=== PATIENT | female | born 1960 | race Caucasian/White ===

== ENCOUNTER 2016-12-15 00:53 | Emergency (ER) | payer MEDICARE, OTHER ==
[~2016-12-15] VITALS: Ht 162.6 cm; Wt 66.0 kg
[~2016-12-15 00:53] MED LIST: ASPI81TA82 PO; CLOP75 PO; EZET10 PO; GEMF600T PO; HYDR-3533 PO; ISOS30 PO; LISI-360 PO; METO50 PO; OMEP20CA5 PO; PRAV40TA2 PO
[2016-12-15 01:02] VITALS: BP 166/110; PULSE 94; RESP 16; TEMP 98.1; O2SAT 99
[2016-12-15] MEDS ORDERED: LISI10TA3 PO (01:23)
[2016-12-15] MEDS ORDERED: OMEP20TA PO (01:23)
[2016-12-15] MEDS ORDERED: GEMF600T PO (01:23)
[2016-12-15] MEDS ORDERED: PLAV75TA29 PO (01:23)
--- NOTE | 2016-12-15 01:42 | PD ---
HPI Chief Complaint: Fall Time Seen by Provider: 01:27 Travel History International Travel<30 days: No Contact w/Intl Traveler<30days: No Traveled to known affect area: No History of Present Illness HPI The patient is a 56-year-old female that states she was drinking alcohol on Tuesday, 3 days ago. She fell and was not particularly sore on Tuesday but to stay she had generalized aches and pains around the thoracic area which went all the way to her anterior abdominal muscles. She denies any numbness, weakness or radiation of pain. She does have a history of cocaine abuse in 2011. She did not hit her head. She denies any fever, nausea or vomiting. She denies any dysuria, frequency or urgency. She took Motrin yesterday morning and this helped during her 8 hour work day. She took another Motrin at 7 PM and another one about one hour ago. These are 800 mg Motrins. PFSH Past Medical History Arthritis: No Asthma: No Heart Rhythm Problems: No Cancer: Yes (CERVICAL) Cardiac Catheterization: Yes Cardiovascular Problems: Yes (2 STENT , CABG 2 VESSELS) High Cholesterol: Yes Chemotherapy: No Chest Pain: Yes Congestive Heart Failure: No COPD: No Coronary Artery Disease: Yes Diabetes: No Diminished Hearing: No Endocrine: No Gastrointestinal Disorders: Yes GERD: Yes Genitourinary: Yes Hiatal Hernia: No Hypertension: Yes Immune Disorder: No Kidney Stones: No Musculoskeletal: Yes Neurologic: No Psychiatric: No Reproductive: No Respiratory: No Immunizations Current: No Radiation Therapy: No Renal Failure: No Sleep Apnea: No Ulcer: Yes Tetanus Vaccination: > 5 Years Influenza Vaccination: No Menopausal: Yes : 4 Para: 2 : 1 Ectopic : Yes (x1) Tubal Ligation: Yes Past Surgical History Abdominal Surgery: Yes (APPY, CHAPARRO) Appendectomy: Yes Cardiac Surgery: Yes (2 VESSEL CABG, ) Cholecystectomy: Yes Coronary Artery Bypass Graft: Yes (double) Coronary Stent: Yes (X1 2010) Ear Surgery: No Endocrine Surgery: No Eye Surgery: No Genitourinary Surgery: No Gynecologic Surgery: Yes Oral Surgery: No Thoracic Surgery: No Tonsillectomy: Yes Other Surgery: Yes Social History Alcohol Use: Yes (weekly) Tobacco Use: Yes (1 PACK PER DAY) Substance Use: Yes Allergies-Medications (Allergen,Severity, Reaction): Coded Allergies: No Known Allergies (Verified , 12/15/16) Reported Meds & Prescriptions Reported Meds & Active Scripts Active Ibuprofen 600 Mg Tab 600 Mg PO TID K-Tab (Potassium Chloride) 20 Meq Tab 20 Meq PO DAILY Flexeril (Cyclobenzaprine HCl) 10 Mg Tab 10 Mg PO TID Reported Omeprazole 20 Mg Tab 20 Mg PO DAILY Lisinopril 10 Mg Tab 10 Mg PO DAILY Gemfibrozil 600 Mg Tab 600 Mg PO BIDAC Take 30 minutes prior to breakfast and dinner. Plavix (Clopidogrel Bisulfate) 75 Mg Tab 75 Mg PO DAILY Review of Systems Except as stated in HPI: all other systems reviewed are Neg Physical Exam Narrative GENERAL: The patient is alert, oriented 3 in moderate apparent distress with her muscle aches. Her vital signs show blood pressure 166/110 but otherwise unremarkable. SKIN: Warm and dry. No needle tracks are present and there is no skin rash present. HEAD: Atraumatic. Normocephalic. EYES: Pupils equal and round. No scleral icterus. No injection or drainage. ENT: No nasal bleeding or discharge. Mucous membranes pink and moist. NECK: Trachea midline. No JVD. CARDIOVASCULAR: Regular rate and rhythm. No murmur appreciated. RESPIRATORY: No accessory muscle use. Clear to auscultation. Breath sounds equal bilaterally. GASTROINTESTINAL: Abdomen soft, the patient has tenderness over the bilateral abdominal rectus muscles in the muscles around the trapezius, latissimus dorsi and paraspinous muscles of the thoracic spine, nondistended. Hepatic and splenic margins not palpable. No guarding or rebound is present. MUSCULOSKELETAL: No obvious deformities. No clubbing. No cyanosis. No edema. NEUROLOGICAL: Awake and alert. No obvious cranial nerve deficits. Motor grossly within normal limits. Normal speech. PSYCHIATRIC: Appropriate mood and affect; insight and judgment normal. Data Data Last Documented VS Vital Signs Date Time Temp Pulse Resp B/P Pulse Ox O2 Delivery O2 Flow Rate FiO2 12/15/16 02:26 72 18 159/92 97 Room Air 12/15/16 01:02 98.1 Orders Complete Blood Count With Diff (12/15/16 01:59) Comprehensive Metabolic Panel (12/15/16 01:59) Creatine Kinase (Cpk) (12/15/16 01:59) Orphenadrine Inj (Norflex Inj) (12/15/16 02:00) Potassium Chloride (Kcl) (12/15/16 02:45) Labs Laboratory Tests Test 12/15/16 02:10 White Blood Count 6.4 TH/MM3 Red Blood Count 3.94 MIL/MM3 Hemoglobin 12.1 GM/DL Hematocrit 35.4 % Mean Corpuscular Volume 89.7 FL Mean Corpuscular Hemoglobin 30.6 PG Mean Corpuscular Hemoglobin 34.2 % Concent Red Cell Distribution Width 12.4 % Platelet Count 236 TH/MM3 Mean Platelet Volume 7.6 FL Neutrophils (%) (Auto) 60.0 % Lymphocytes (%) (Auto) 23.3 % Monocytes (%) (Auto) 13.3 % Eosinophils (%) (Auto) 2.7 % Basophils (%) (Auto) 0.7 % Neutrophils # (Auto) 3.8 TH/MM3 Lymphocytes # (Auto) 1.5 TH/MM3 Monocytes # (Auto) 0.9 TH/MM3 Eosinophils # (Auto) 0.2 TH/MM3 Basophils # (Auto) 0.0 TH/MM3 CBC Comment DIFF FINAL Differential Comment Sodium Level 143 MEQ/L Potassium Level 3.3 MEQ/L Chloride Level 110 MEQ/L Carbon Dioxide Level 24.3 MEQ/L Anion Gap 9 MEQ/L Blood Urea Nitrogen 15 MG/DL Creatinine 0.74 MG/DL Estimat Glomerular Filtration 81 ML/MIN Rate Random Glucose 107 MG/DL Calcium Level 8.6 MG/DL Total Bilirubin 0.3 MG/DL Aspartate Amino Transf 15 U/L (AST/SGOT) Alanine Aminotransferase 16 U/L (ALT/SGPT) Total Creatine Kinase 104 U/L Total Protein 7.7 GM/DL Albumin 3.3 GM/DL [facility] Medical Decision Making Medical Screen Exam Complete: Yes Emergency Medical Condition: Yes Medical Record Reviewed: Yes Differential Diagnosis Thoracic myalgias, electrolyte disorder, acute thoracic strain, muscle spasm Narrative Course The patient appears to have generalized thoracic myalgias. They go anteriorly over the abdominal rectus as well. It is now 0306 and the patient feels much better and is relaxed. The patient works at a job that requires her to be on her feet all day and this is extremely painful for her at this time. Impression: Thoracic myalgias Plan: The patient will use a heating pad, Flexeril, Motrin at 600 mg 3 times daily and potassium supplement. She should follow-up with her primary care physician next week. She is given a work excuse so that she can rest through the weekend. Diagnosis Primary Impression: Myalgia Additional Impression: Acute bilateral thoracic back pain Additional Instructions: The work excuse is designed so that she can rest. This is probably the most important part of the treatment. Do not drink alcohol or drive on the Flexeril as that will make you sleepy. Take the Motrin one tablet 3 times daily to develop high anti-inflammatory levels. The potassium pill is taken one tablet daily for 10 days. Follow-up with her primary care physician this week or next week. Med/Other Pt SpecificInfo: Prescription(s) given Scripts Ibuprofen 600 Mg Toq105 Mg PO TID #45 TAB Ref 0 Prov:Davin Masters MD 12/15/16 Potassium Chloride ER (K-Tab)20 Meq Tab20 Meq PO DAILY #10 TAB Ref 0 Prov:Davin Masters MD 12/15/16 Cyclobenzaprine (Flexeril)10 Mg Tab10 Mg PO TID #60 TAB Ref 0 Prov:Davin Masters MD 12/15/16 Disposition: DISCHARGE HOME Condition: Stable Davin Masters MD Dec 15, 2016 01:42
[2016-12-15] MEDS ORDERED: ORPHENADRINE INJ 60 MG/2 ML AMP IM ONE (02:00)
[2016-12-15 02:18] LABS: AUTOMATED NEUTROPHIL # 3.8 TH/MM3 (1.8-7.7); BASOPHIL % 0.7 % (0.0-2.0); EOSINOPHIL # 0.2 TH/MM3 (0-0.4); EOSINOPHIL % 2.7 % (0.0-4.0); HEMATOCRIT 35.4 % (35.0-46.0); HEMO FLAGS DIFF FINAL; LYMPH % 23.3 % (9.0-44.0); LYMPHOCYTE # 1.5 TH/MM3 (1.0-4.8); MEAN CELL VOLUME 89.7 FL (80.0-100.0); MEAN CORPUSCULAR HEMOGLOBIN 30.6 PG (27.0-34.0); MEAN CORPUSCULAR HGB CONC 34.2 % (32.0-36.0); MONO % 13.3 % (0.0-8.0); PLATELET COUNT 236 TH/MM3 (150-450); RED BLOOD COUNT 3.94 MIL/MM3 (4.00-5.30); RED CELL DISTRIBUTION WIDTH 12.4 % (11.6-17.2); WHITE BLOOD COUNT 6.4 TH/MM3 (4.0-11.0)
[2016-12-15 02:26] VITALS: BP 159/92; PULSE 72; RESP 18; O2SAT 97
[2016-12-15 02:28] LABS: CHLORIDE 110 MEQ/L (98-107); POTASSIUM 3.3 MEQ/L (3.5-5.1); SODIUM (NA) 143 MEQ/L (136-145)
[2016-12-15 02:31] LABS: ANION GAP 9 MEQ/L (5-15); BICARBONATE 24.3 MEQ/L (21.0-32.0)
[2016-12-15 02:32] LABS: BLOOD UREA NITROGEN 15 MG/DL (7-18)
[2016-12-15 02:34] LABS: ALT (GPT) 16 U/L (10-53)
[2016-12-15 02:35] LABS: AST (GOT) 15 U/L (15-37); GLOMERULAR FILTRATION RATE 81 ML/MIN (>89)
[2016-12-15 02:36] LABS: TOTAL BILIRUBIN ADULT 0.3 MG/DL (0.2-1.0)
[2016-12-15 02:37] LABS: ALKALINE PHOSPHATASE 111 U/L (45-117); CREATINE KINASE 104 U/L (26-192)
[2016-12-15] MEDS ORDERED: POTASSIUM CHLORIDE 20 MEQ CONTROLLED RELEASE TAB PO ONE (02:45)
[2016-12-15] MEDS ORDERED: POTA1TAB4 PO (02:56)
[2016-12-15] MEDS ORDERED: CYCL1TAB29 PO (02:56)
[2016-12-15] MEDS ORDERED: IBUP-232 PO (02:56)
[2016-12-15 02:59] VITALS: BP 152/90
== END 2016-12-15 03:28 | disposition home or self-care (01) ==
LOC: PHED 00:53
DX: M79.1 Myalgia (principal); M54.6 Pain in thoracic spine; R10.812 Left upper quadrant abdominal tenderness; R10.813 Right lower quadrant abdominal tenderness; E78.00 Pure hypercholesterolemia, unspecified; Z95.1 Presence of aortocoronary bypass graft; I10 Essential (primary) hypertension; F17.210 Nicotine dependence, cigarettes, uncomplicated; W19.XXXA Unspecified fall, initial encounter; Y93.89 Activity, other specified; Y92.9 Unspecified place or not applicable
CPT/HCPCS: 80053; 82550; 85025; 96372; 99283; J2360

== ENCOUNTER 2018-01-07 14:46 | Emergency (ER) | payer OTHER, MEDICARE ==
[~2018-01-07] VITALS: Ht 162.6 cm; Wt 70.9 kg
[~2018-01-07 14:46] MED LIST changes: -ASPI81TA82 PO; -CLOP75 PO; +CYCL10TA PO; -EZET10 PO; -HYDR-3533 PO; +IBUP-232 PO; -ISOS30 PO; -LISI-360 PO; +LISI10TA3 PO; -METO50 PO; -OMEP20CA5 PO; +OMEP20TA93 PO; +PLAV75TA29 PO; +POTA1TAB4 PO; -PRAV40TA2 PO
[2018-01-07 14:50] VITALS: BP 187/90; PULSE 82; RESP 16; TEMP 97.6; O2SAT 98
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
[2018-01-07] MEDS ORDERED: IOHEXOL 350 MG/ML 10 ML VIAL (for RAD DIAG) IVCONTRAST ONE (17:41)
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
== END 2018-01-07 18:26 | disposition home or self-care (01) ==
LOC: PHEFT 14:46
DX: S00.83XA Contusion of other part of head, initial encounter (principal); S20.212A Contusion of left front wall of thorax, initial encounter; I10 Essential (primary) hypertension; I25.10 Atherosclerotic heart disease of native coronary artery without angina pectoris; E78.00 Pure hypercholesterolemia, unspecified; F17.210 Nicotine dependence, cigarettes, uncomplicated; V47.5XXA Car driver injured in collision with fixed or stationary object in traffic accident, initial encounter; Y92.410 Unspecified street and highway as the place of occurrence of the external cause; Z95.1 Presence of aortocoronary bypass graft; Z95.5 Presence of coronary angioplasty implant and graft; Z85.41 Personal history of malignant neoplasm of cervix uteri; Z79.899 Other long term (current) drug therapy
CPT/HCPCS: 70450; 70486; 71260; 99284; Q9967

== ENCOUNTER 2018-03-07 10:34 | Inpatient (IN) | payer MEDICARE ==
[~2018-03-07] VITALS: Ht 162.6 cm; Wt 71.9 kg
[2018-03-07] VITALS (16 sets, daily range): BP systolic 135–171; BP diastolic 84–99; PULSE 58–96; RESP 16–18; TEMP 97.7–97.9; O2SAT 96–100
[~2018-03-07 10:34] MED LIST changes: -CYCL10TA PO; -IBUP-232 PO
[2018-03-07] MEDS ORDERED: ATOR20TA15 PO (10:53)
[2018-03-07] MEDS ORDERED: AMLO5TAB2 PO (10:53)
[2018-03-07] MEDS ORDERED: METO25TA3 PO (10:53)
[2018-03-07] MEDS ORDERED: SODIUM CHLORIDE 0.9% FLUSH 10 ML FLUSH IVF PRN (11:15)
[2018-03-07] MEDS ORDERED: ASPIRIN 81 MG CHEW TAB PO ONE (11:15)
[2018-03-07 11:21] LABS: AUTOMATED NEUTROPHIL # 3.6 TH/MM3 (1.8-7.7); BASOPHIL % 0.6 % (0.0-2.0); EOSINOPHIL # 0.2 TH/MM3 (0-0.4); EOSINOPHIL % 3.5 % (0.0-4.0); HEMATOCRIT 34.8 % (35.0-46.0); LYMPH % 32.6 % (9.0-44.0); LYMPHOCYTE # 2.1 TH/MM3 (1.0-4.8); MEAN CELL VOLUME 86.5 FL (80.0-100.0); MEAN CORPUSCULAR HEMOGLOBIN 29.9 PG (27.0-34.0); MEAN CORPUSCULAR HGB CONC 34.6 % (32.0-36.0); MEAN PLATELET VOLUME 7.9 FL (7.0-11.0); MONO % 7.6 % (0.0-8.0); MONOCYTE # 0.5 TH/MM3 (0-0.9); NEUT % 55.7 % (16.0-70.0); PLATELET COUNT 287 TH/MM3 (150-450); RED BLOOD COUNT 4.02 MIL/MM3 (4.00-5.30); RED CELL DISTRIBUTION WIDTH 12.6 % (11.6-17.2); WHITE BLOOD COUNT 6.4 TH/MM3 (4.0-11.0)
[2018-03-07 11:26] LABS: CHLORIDE 105 MEQ/L (98-107); SODIUM (NA) 136 MEQ/L (136-145)
--- NOTE | 2018-03-07 11:26 | PD ---
HPI Chief Complaint: Chest Pain Time Seen by Provider: 10:57 Travel History International Travel<30 days: No Contact w/Intl Traveler<30days: No Traveled to known affect area: No History of Present Illness HPI This is a 58-year-old female who presents to the emergency department with chest discomfort that started about an hour prior to arrival described as a pressure on the left side of her chest, constant lasting for about 15 minutes and then subsiding. The pain was moderate severity, associated with nausea, lightheadedness and tingling in her left arm, similar to pain when she has had heart attacks in the past. Patient has a history of a double bypass and a stent which subsequently required a replacement stent. 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 She thinks she had a normal stress test about 6 months ago. She did find out yesterday evening that her daughter in [place] lost custody of her 3 children so she has been under stress. PFSH Past Medical History Arthritis: No Asthma: No Heart Rhythm Problems: No Cancer: Yes (CERVICAL) Cardiac Catheterization: Yes Cardiovascular Problems: Yes (2 STENT , CABG 2 VESSELS) High Cholesterol: Yes Chemotherapy: No Chest Pain: Yes Congestive Heart Failure: No COPD: No Coronary Artery Disease: Yes Diabetes: No Diminished Hearing: No Endocrine: No Gastrointestinal Disorders: Yes GERD: Yes Genitourinary: Yes Hiatal Hernia: No Heparin Induced Thrombocytopen: No Hypertension: Yes Immune Disorder: No Implanted Vascular Access Dvce: No Kidney Stones: No Musculoskeletal: Yes Neurologic: No Psychiatric: No Reproductive: No Respiratory: No Immunizations Current: No Myocardial Infarction: Yes Radiation Therapy: No Renal Failure: No Sleep Apnea: No Ulcer: Yes Menopausal: Yes : 4 Para: 2 : 1 Ectopic : Yes (x1) Tubal Ligation: Yes Past Surgical History Abdominal Surgery: Yes (APPY, CHAPARRO) Appendectomy: Yes Cardiac Surgery: Yes (2 VESSEL CABG, ) Cholecystectomy: Yes Coronary Artery Bypass Graft: Yes (double) Coronary Stent: Yes (X1 2010) Ear Surgery: No Endocrine Surgery: No Eye Surgery: No Genitourinary Surgery: No Gynecologic Surgery: Yes Neurologic Surgery: No Oral Surgery: No Thoracic Surgery: No Tonsillectomy: Yes Other Surgery: Yes Social History Alcohol Use: Yes (weekly) Tobacco Use: No (QUIT 09/2017) Substance Use: Yes Allergies-Medications (Allergen,Severity, Reaction): Coded Allergies: No Known Allergies (Verified Adverse Reaction, Unknown, 03/07/18) Reported Meds & Prescriptions Reported Meds & Active Scripts Active Reported Amlodipine (Amlodipine Besylate) 5 Mg Tab 5 Mg PO DAILY Atorvastatin (Atorvastatin Calcium) 20 Mg Tab 20 Mg PO HS Metoprolol Tartrate 25 Mg Tab 25 Mg PO DAILY Omeprazole 20 Mg Tab 20 Mg PO DAILY Lisinopril 10 Mg Tab 20 Mg PO DAILY Gemfibrozil 600 Mg Tab 600 Mg PO BIDAC Take 30 minutes prior to breakfast and dinner. Plavix (Clopidogrel Bisulfate) 75 Mg Tab 75 Mg PO DAILY Review of Systems Except as stated in HPI: all other systems reviewed are Neg Physical Exam Narrative GENERAL:Well appearing, no acute distress SKIN: Focused skin assessment warm and dry. HEAD: Atraumatic. Normocephalic. EYES: Pupils equal and round. No injection or drainage. ENT: Moist mucous membranes NECK: Trachea midline. CARDIOVASCULAR: Regular rate and rhythm. No murmur appreciated. RESPIRATORY: Clear to auscultation. Breath sounds equal bilaterally. GASTROINTESTINAL: Abdomen soft, non-tender, nondistended. MUSCULOSKELETAL: No obvious deformities. NEUROLOGICAL: Awake and alert. No obvious cranial nerve deficits. Moving all extremities. PSYCHIATRIC: Appropriate mood and affect; insight and judgment normal. Data Data Last Documented VS Vital Signs Date Time Temp Pulse Resp B/P (MAP) Pulse Ox O2 Delivery O2 Flow Rate FiO2 03/07/18 11:15 99 Nasal Cannula 2.00 03/07/18 10:47 97.7 96 16 157/91 (113) Orders Orders Electrocardiogram (03/07/18 11:03) Complete Blood Count With Diff (03/07/18 11:03) Comprehensive Metabolic Panel (03/07/18 11:03) Troponin I (03/07/18 11:03) Ecg Monitoring (03/07/18 11:03) Bilateral Bp Monitoring (03/07/18 11:03) Iv Access Insert/Monitor (03/07/18 11:03) Oximetry (03/07/18 11:03) Oxygen Administration (03/07/18 11:03) Aspirin Chew (Aspirin Chew) (03/07/18 11:15) Sodium Chloride 0.9% Flush (Ns Flush) (03/07/18 11:15) Chest, Pa & Lat (03/07/18 11:03) Labs Laboratory Tests Test 03/07/18 10:54 White Blood Count 6.4 TH/MM3 Red Blood Count 4.02 MIL/MM3 Hemoglobin 12.0 GM/DL Hematocrit 34.8 % Mean Corpuscular Volume 86.5 FL Mean Corpuscular Hemoglobin 29.9 PG Mean Corpuscular Hemoglobin Concent 34.6 % Red Cell Distribution Width 12.6 % Platelet Count 287 TH/MM3 Mean Platelet Volume 7.9 FL Neutrophils (%) (Auto) 55.7 % Lymphocytes (%) (Auto) 32.6 % Monocytes (%) (Auto) 7.6 % Eosinophils (%) (Auto) 3.5 % Basophils (%) (Auto) 0.6 % Neutrophils # (Auto) 3.6 TH/MM3 Lymphocytes # (Auto) 2.1 TH/MM3 Monocytes # (Auto) 0.5 TH/MM3 Eosinophils # (Auto) 0.2 TH/MM3 Basophils # (Auto) 0.0 TH/MM3 CBC Comment DIFF FINAL Differential Comment Neela Mora MD Mar 07, 2018 11:25
[2018-03-07 11:29] LABS: CALCIUM 9.1 MG/DL (8.5-10.1)
--- NOTE | 2018-03-07 11:29 | RADRPT ---
EXAM DATE/TIME: 03/07/2018 11:13 [place] COMPARISON: No previous studies available for comparison. INDICATIONS : Chest pressure, light headed, & shortness of breath. MEDICAL HISTORY : Myocardial infarction. Hypercholesterolemia. Gastroesophageal reflux disease. Hypertension. CAD. Ulcer. cervical cancer. Former smoker. SURGICAL HISTORY : Tonsillectomy. Tubal ligation. CABG. Cardiac cath w/ stent placement. Appendectomy. Cholecystectomy. ENCOUNTER: Initial ACUITY: 1 day PAIN SCORE: 0/10 LOCATION: chest FINDINGS: PA and lateral views of the chest demonstrate the lungs to be symmetrically aerated without evidence of mass, infiltrate or effusion. The cardiomediastinal contours are unremarkable. Osseous structure s are intact. Median sternotomy wires. Mediastinal surgical suture. CONCLUSION: No acute disease. Jose Lima Jr., MD on March 07, 2018 at 11:26 Board Certified Radiologist. This report was verified electronically.
[2018-03-07 11:30] LABS: BICARBONATE 22.3 MEQ/L (21.0-32.0); BLOOD UREA NITROGEN 22 MG/DL (7-18); GLUCOSE,RANDOM 85 MG/DL (74-106)
[2018-03-07 11:33] LABS: ALT (GPT) 26 U/L (10-53); AST (GOT) 22 U/L (15-37); CREATININE 0.73 MG/DL (0.50-1.00); GLOMERULAR FILTRATION RATE 82 ML/MIN (>89)
[2018-03-07 11:34] LABS: TOTAL BILIRUBIN ADULT 0.3 MG/DL (0.2-1.0)
[2018-03-07 11:35] LABS: TOTAL PROTEIN 8.4 GM/DL (6.4-8.2)
[2018-03-07 11:36] LABS: ALKALINE PHOSPHATASE 110 U/L (45-117)
[2018-03-07 11:38] LABS: TROPONIN I LESS THAN 0.02 NG/ML (0.02-0.05)
--- NOTE | 2018-03-07 11:53 | EKG ---
Date Performed: 03/07/2018 Time Performed: 10:42:30 PTAGE: 58 years EKG: Sinus rhythm NORMAL ECG NO PREVIOUS TRACING DOCTOR: Desmond Floyd Interpretating Date/Time 03/07/2018 11:52:51
--- NOTE | 2018-03-07 14:00 | HHI.HP ---
[facility] Service [facility] Primary Care Physician Unknown Admission Diagnosis chest pain Diagnoses: Chief Complaint: Chest pain Travel History International Travel<30 Days: No Contact w/Intl Traveler <30 Da: No Traveled to Known Affected Are: No History of Present Illness 58-year-old white female being admitted for chest pain. Patient was in her usual state of health until about 20 minutes prior to presents to the emergency department when she began expressing sudden onset of chest pain that was at least 6/10 intensity. There was no alleviating or exacerbating factors found. Chest pain had resolved prior to her coming to the emergency department. They report having some nausea lightheadedness and tingling in her left arm as well. Denies losing consciousness. But now with the chest pain gone she did have some shortness of breath with the chest pain episode her shortness of breath has resolved and has no pleuritic aspect of any chest pain. Says that this was similar to her prior presentations in the past when she ultimately did get catheterized. Denies any fevers or chills. Patient reports being compliant with her atorvastatin and her Plavix. Past medical history significant for CABG and stenting, as well as COPD and blood pressure medications Social history significant for lifelong history of smoking until about 6 months ago. Family history is unremarkable per patient. In the emergency department she had an EKG done which I independently reviewed and saw no significant ST segment changes concerning for ischemia or infarction. Was given aspirin in the emergency department. Past Family Social History Allergies: Coded Allergies: No Known Allergies (Verified Adverse Reaction, Unknown, 03/07/18) Physical Exam Vital Signs Vital Signs Date Time Temp Pulse Resp B/P (MAP) Pulse Ox O2 Delivery O2 Flow Rate FiO2 03/07/18 12:46 58 16 135/87 (103) 98 03/07/18 11:15 99 Nasal Cannula 2.00 03/07/18 11:15 99 03/07/18 10:49 97 Nasal Cannula 2.00 03/07/18 10:47 97.7 96 16 157/91 (113) 96 Physical Exam VS: afebrile GENERAL: Sitting up in bed, awake, alert, no acute distress SKIN: Warm and dry. EYES: Pupils equal and round. No scleral icterus. No injection or drainage. ENT: No nasal bleeding or discharge. Mucous membranes pink and moist. CARDIOVASCULAR: Regular rate and rhythm. no murmurs RESPIRATORY: No accessory muscle use. Clear to auscultation. Breath sounds equal bilaterally. GASTROINTESTINAL: Abdomen soft, non-tender, nondistended. Hepatic and splenic margins not palpable. Extremities: No clubbing, cyanosis, or edema. No obvious deformities. MUSCULOSKELETAL: adequate muscle bulk and tone for age and habitus. Does have some tenderness to palpation over her sternum which she says was due to prior surgeries but says that tenderness was not consistent with her chest pain earlier this morning NEUROLOGICAL: Awake and alert. No obvious cranial nerve deficits. No facial droop nor slurred speech noted. PSYCHIATRIC: Appropriate mood and affect; insight and judgment normal. Laboratory Laboratory Tests Test 03/07/18 10:54 White Blood Count 6.4 Red Blood Count 4.02 Hemoglobin 12.0 Hematocrit 34.8 Mean Corpuscular Volume 86.5 Mean Corpuscular Hemoglobin 29.9 Mean Corpuscular Hemoglobin Concent 34.6 Red Cell Distribution Width 12.6 Platelet Count 287 Mean Platelet Volume 7.9 Neutrophils (%) (Auto) 55.7 Lymphocytes (%) (Auto) 32.6 Monocytes (%) (Auto) 7.6 Eosinophils (%) (Auto) 3.5 Basophils (%) (Auto) 0.6 Neutrophils # (Auto) 3.6 Lymphocytes # (Auto) 2.1 Monocytes # (Auto) 0.5 Eosinophils # (Auto) 0.2 Basophils # (Auto) 0.0 CBC Comment DIFF FINAL Differential Comment Blood Urea Nitrogen 22 Creatinine 0.73 Random Glucose 85 Total Protein 8.4 Albumin 4.0 Calcium Level 9.1 Alkaline Phosphatase 110 Aspartate Amino Transf (AST/SGOT) 22 Alanine Aminotransferase (ALT/SGPT) 26 Total Bilirubin 0.3 Sodium Level 136 Potassium Level 3.4 Chloride Level 105 Carbon Dioxide Level 22.3 Anion Gap 9 Estimat Glomerular Filtration Rate 82 Troponin I LESS THAN 0.02 Result Diagram: 03/07/18 1054 03/07/18 1054 Imaging Last Impressions Chest X-Ray 03/07/18 1103 Signed Impressions: Service Date/Time: Wednesday, March 07, 2018 11:13 - CONCLUSION: No acute disease. MD Manjinder Mi Jr. VTE Risk Assessment Caprini VTE Risk Assessment: Mod/High Risk (score >= 2) Caprini Risk Assessment Model Point Value = 1 Point Value = 2 Point Value = 3 Point Value = 5 Age 41-60 Minor surgery BMI > 25 kg/m2 Swollen legs Varicose veins or History of unexplained or recurrent spontaneous Oral contraceptives or hormone replacement Sepsis (< 1 month) Serious lung disease, including pneumonia (< 1 month) Abnormal pulmonary function Acute myocardial infarction Congestive heart failure (< 1 month) History of inflammatory bowel disease Medical patient at bed rest Age 61-74 Arthroscopic surgery Major open surgery (> 45 min) Laparoscopic surgery (> 45 min) Malignancy Confined to bed (> 72 hours) Immobilizing plaster cast Central venous access Age >= 75 History of VTE Family history of VTE Factor V Leiden Prothrombin [id number] Lupus anticoagulant Anticardiolipin antibodies Elevated serum homocysteine Heparin-induced thrombocytopenia Other congenital or acquired thrombophilia Stroke (< 1 month) Elective arthroplasty Hip, pelvis, or leg fracture Acute spinal cord injury (< 1 month) Prophylaxis Regimen Total Risk Factor Score Risk Level Prophylaxis Regimen 0-1 Low Early ambulation 2 Moderate Order ONE of the following: *Sequential Compression Device (SCD) *Heparin 5000 units SQ BID 3-4 Higher Order ONE of the following medications: *Heparin 5000 units SQ TID *Enoxaparin/Lovenox 40 mg SQ daily (WT < 150 kg, CrCl > 30 mL/min) *Enoxaparin/Lovenox 30 mg SQ daily (WT < 150 kg, CrCl > 10-29 mL/min) *Enoxaparin/Lovenox 30 mg SQ BID (WT < 150 kg, CrCl > 30 mL/min) AND/OR *Sequential Compression Device (SCD) 5 or more Highest Order ONE of the following medications: *Heparin 5000 units SQ TID (Preferred with Epidurals) *Enoxaparin/Lovenox 40 mg SQ daily (WT < 150 kg, CrCl > 30 mL/min) *Enoxaparin/Lovenox 30 mg SQ daily (WT < 150 kg, CrCl > 10-29 mL/min) *Enoxaparin/Lovenox 30 mg SQ BID (WT < 150 kg, CrCl > 30 mL/min) AND *Sequential Compression Device (SCD) Assessment and Plan Assessment and Plan 58-year-old white female being admitted for chest pain Chest pain -discussed case with ER doctor who discussed case with cardiology -Plan to take [place] [facility] [place]Patient given aspirin in the ER -We will place on telemetry, resume home medications except for Plavix (will let cardiology dictate this) -Trend troponins, make n.p.o. SCDs for now given impending catheterization Physician Certification 2 Midnight Certification Type: Admission for Inpatient Services Order for Inpatient Services The services are ordered in accordance with Medicare regulations or non- Medicare payer requirements, as applicable. In the case of services not specified as inpatient-only, they are appropriately provided as inpatient services in accordance with the 2-midnight benchmark. Estimated LOS (days): 2 2 days is the estimated time the patient will need to remain in the hospital, assuming treatment plan goals are met and no additional complications. Post-Hospital Plan: Home Lamberto Ag MD Mar 07, 2018 14:00
[2018-03-07] MEDS ORDERED: MIDAZOLAM HCL 2 MG/2 ML VIAL ONE (15:29)
[2018-03-07] MEDS ORDERED: HEPARIN SODIUM - IV 10,000 UNITS/10 ML VIAL ONE (15:30)
[2018-03-07] MEDS ORDERED: NITROGLYCERIN INJ 5 ML ONE (15:30)
[2018-03-07] MEDS ORDERED: VERAPAMIL HCL 5 MG/2 ML VIAL ONE (15:30)
[2018-03-07] MEDS ORDERED: HEPARIN-NS/PF FLUSH BAG 1,000 ML IV FLUSH ONE (17:01)
--- NOTE | 2018-03-07 17:13 | CATHPROC ---
[facility] HIS Report Study Information Study Number Admission Scheduled Start Study Start [id number] Mar 07 2018 12:31PM 03/07/2018 Mar 07 2018 2:24PM [place] Service Cardiac Catheterization Admit Source Facility Department Other [facility] - [facility] [employer] Operator Physician and Clinical Staff Initial Anders Biswas Tax Services Manager Re Rodriguez,BRENDON Tax Services Manager Jaylon Jara,RN Recorder Karen Mahmood,RT(R) Scrub Tahira Melchor ,RT(R) Procedures Performed Procedure Location (Site) Vessel Name Coronary Angiograms LCA Left Coronary Coronary Angiograms RCA Right Coronary Drug Eluting Inflatio RCA Prox Right Coronary L Heart Cath PTCA RCA Prox Right Coronary PTCA ADD ON'S Wire insertion Radial (right) Radial Art. Equipment Time Racking Machine Operator Description Size Mfg Part Number Used/Scraped WIRE, BALANCE MIDDLEWEIGHT [id number] 16:14 [employer] 190CM Used 190CM *[id number] TRANSDUCER, TRUWAVE [id number] 15:52 MENESES MAN * Used W/PayPlug *[id number] [phone] *[id number] [id number] *[id number] *[id number] [id number] *[id number] 15:52 [employer] PACK, CCL CUSTOM * Used *[id number] 15:52 [employer] SUPPORT, ARTERIAL ADULT 41615 *[id number] Used [id number] 16:15 MEDTR[employer]IC BALLOON, 2.5 X 20MM EUPHORA 20MM Used *[id number] BALLOON, 3.0 X 20MM NC [id number] 16:42 MEDTRONIC 20MM Used EUPHORA *[id number] 16:40 MEDTRONIC STENT, 3.0 34MM SULAIMAN 3.0 34MM [id number] Used [id number] 16:12 [employer] 30 LEONOR INDEFLATOR Used *[id number] BAND, RADIAL COMPRESSION TR [id number] 16:52 [employer] MEDICAL 24CM Used SHORT 24 *[id number] 15:52 [employer] WIRE, EXCHANGE 260CM 3MMJ 260CM Used *[id number] 15:52 NAMIC MANIFOLD, 4 PORT * Used *[id number] 15:52 NYCOMED OMNIPAQUE, 350 MG, 150ML 150ML [id number] Used 16:12 NYCOMED OMNIPAQUE, 350 MG, 150ML 150ML [id number] Used [id number] 15:52 [employer] BL[employer],WARM AIR CCL * Used *[id number] SHEATH, FR6 TRANSRADIAL RM*[id number] 15:52 PinkUP FR 6 Used SLENDER 10CM *[id number] Equipment Model, Serial, Lot Number and Expiration Data Description Model Number Serial Number Lot Number Expiration Date BALLOON, 2.5 X 20MM EUPHORA [id number] 09-26-2019 BALLOON, 3.0 X 20MM NC [id number] 09-05-2019 EUPHORA STENT, 3.0 34MM SULAIMAN [id number] 07-18-2019 History: Current Medications Medication Dosage/Unit Route Frequency Last Date/Time Taken ASA NORVASC Beta Harsha LISINOPRIL PLAVIX Statins (any) Prilosec LOPRESSOR History: Allergies Allergy Reaction No Known Allergies History: Risk Factors Family History of Hypertension Dyslipidemia Previous AL Previous Heart Failure Premature CAD No No Yes Yes No Prior Valve Prior PCI Prior PCIDate Prior CABG Prior CABGDate Surgery No Yes 06/12/2013 Yes 11/14/1999 Cerebrovascular Peripheral Artery Chronic Lung On Dialysis Diabetes Disease Disease Disease No No No No No History: Symptoms/Diagnosis Selection Items Chest pain History: CV Disease Selection Items Known CAD AL History: Stress Tests Stress or Imaging Studies Performed No History: Other Disease Selection Items HTN History: Other Current Smoker Method Packs a Day Years Used Pack Years No Cigarettes 1 47 47 Labs Hgb (g/dl) Hct (%) RBC (MIL/MM3) WBC (l/cumm) Platelets (thousands) 11.60-17.00 35.00-51.00 4.00-5.90 4.00-11.00 150.00-450.00 12.0 34.8 4 6.4 287 Glucose (mg/dl) BUN (mg/dl) Creatinine (mg/dl) BUN:Creatinine (1:x) 74.00-106.00 7.00-18.00 0.50-1.30 10.00-20.00 85 22 0.7 31.4 Na (meq/l) K (meq/l) Cl (meq/l) CO2 (mmol/L) Ca (mg/dl) 136.00-145.00 3.50-5.10 98.00-107.00 21.00-32.00 8.50-10.10 136 3.4 105 22.3 9.1 Troponin I (ng/ml) CPK-MB (ng/ML) 0.02-0.05 0.50-3.60 0.02 Not Drawn Medication Medication Total Dose (Bolus/Oral) Medication Total Dosage/Unit 1% XYLOCAINE 20 mL FENTANYL 25 mcg HEPARIN 4500 units NTG (IC) 100 mcg RADIAL COCKTAIL 5 mL (Bolus) VERSED 1 mg Medications (Bolus/Oral) Medication Time Given Dosage/Unit Administered By Reason 1% XYLOCAINE 03/07/2018 3:53:26 PM 20 mL Anders Ramirez 20 mL 1% XYLOCAINE given in lab by Anders Ramirez in Right Radial via Subcutaneous. VERSED 03/07/2018 3:53:44 PM 0.5 mg Estefani, Jaylon 0.5 mg VERSED given in lab by Jaylon Jara RN in Right Antecubital via Peripheral IV. FENTANYL 03/07/2018 3:54:20 PM 25 mcg Estefani, Jaylon 25 mcg FENTANYL given in lab by Jaylon Jara RN via Peripheral IV. Ntg 200mcg Verapamil 2.5mg Heparin RADIAL COCKTAIL 03/07/2018 4:02:29 PM 5 mL (Bolus) Anders Ramirez 3000U 5 mL (Bolus) RADIAL COCKTAIL given in lab by Anders Ramirez via Radial. Using [Solution Name]. R luis antonio: Ntg 200mcg Verapamil 2.5mg Heparin 3000U. HEPARIN 03/07/2018 4:15:16 PM 4500 units Estefani, Jaylon 4500 units HEPARIN given in lab by Jaylon Jara RN via Peripheral IV. VERSED 03/07/2018 4:32:36 PM 0.5 mg Estefani, Jaylon 0.5 mg VERSED given in lab by Jaylon Jara RN via Peripheral IV. NTG (IC) 03/07/2018 4:46:43 PM 100 mcg Anders Ramirez 100 mcg NTG (IC) given in lab by Anders Ramirez via Intra-coronary. Medication (Drip) Medication Time Given Dosage/Unit Concentration/Unit Diluent (ml) Solution IV Solutions 03/07/2018 3:29:10 PM 0 mL (IV) 500 NaCl .9 Patient arrived on IV Solutions in Right Antecubital via Peripheral IV. Pump/Drip Flow = 20 ml/hr usi ng NaCl .9. Initial Case Assessment Cardiovascular HR Rhythm NIBP 65 reg 160/87 Edema Present Skin color Skin None Normal Warm Circulatory - Right Pulses Dorsalis Pedis Femoral Radial 2 2 2 Scale (0,1,2,3,4,d) Circulatory - Left Pulses Dorsalis Pedis Femoral Radial 2 Scale (0,1,2,3,4,d) Circulatory - Lower Extremities Color Lower Right Normal Neurological State Oriented to time-place- Alert Moves all extremities person Respiration - General Respiration Rate SpO2 (%) (B/min) 17 98 Final Case Assessment Cardiovascular HR Rhythm NIBP Chest Pain 74 reg 163/97 0 Edema Present Skin color Skin None Normal Warm Circulatory - Right Pulses Dorsalis Pedis Femoral Radial 2 2 2 Scale (0,1,2,3,4,d) Circulatory - Left Pulses Dorsalis Pedis Femoral Radial 2 Scale (0,1,2,3,4,d) Neurological State Oriented to time-place- Alert Moves all extremities person Respiration - General Respiration Rate SpO2 (%) (B/min) 17 99 Chronological Log Time Study Chronological Log 15:13:55 Patient arrived via Bed. 15:13:56 Patient Name, D.O.B, / Armband Verified By R.N. 15:13:57 Consent signed by the physician and the patient and verified by the [employer] staff. 15:27:56 Reference ECG taken 15:28:07 Pre-op and post- op instructions given; patient acknowledges understanding of instructions. 15:28:08 Verbal Stimulation=2 Physical Stimulation=2 Airway=2 Respiration=2 TOTAL=8. (0=absent, 1=li mited, 2=present) 15:28:40 Allens test performed on the right radial and ulnar artery. 15:28:41 Patient has been NPO for More than 6Hrs. Skin Breakdown-none 15:28:43 15:28:54 A # 20 IV was noted in the Antecubital (right). Grade = 0 15:29:10 Patient arrived on IV Solutions in Right Antecubital via Peripheral IV. Pump/Drip Flow = 20 ml/hr using NaCl .9. 15:29:26 History and physical on the chart or being dictated. Assessment: Initial Case, HR=65 BPM, Rhythm=reg, MYLX=406/87 mmhg, Edema=None, Color=Normal, Sk in = Warm Right Pulses: Valerio Ped=2, Femoral=2, Radial=2 Left Pulses: Femoral=2 15:29:27 Lower Right Extremities: Color=Normal Neurological: State=Alert, Ox3, KULKARNI Respiration: Resp=17 B/min, SpO2=98 % Vitals capture started with the following parameters, Patient=Adult, Interval=5 min, Initial Pr nyhcbu=013 mmHg, 15:29:45 Deflation Rate=5 mmHg, Cuff placed on Left Arm 15:30:11 Right Radial and groin(s) prepped with 2% chlorhexidine, and draped after a 3 min. waiting time. 15:30:21 HR=60 bpm, LOJX=575/87 mmhg, SpO2=97.0 %, Resp=10 B/min, Pain=0, Charles=10, Blake=2 15:35:24 HR=60 bpm, HRFA=803/98 mmhg, SpO2=97.0 %, Resp=20 B/min, Pain=0, Charles=10, Blake=2 15:40:27 HR=63 bpm, PBEM=406/93 mmhg, SpO2=96.0 %, Resp=29 B/min, Pain=0, Charles=10, Blake=2 15:40:38 Pressure channel 1 zeroed. 15:40:52 MD paged 15:45:24 HR=64 bpm, UKRD=011/95 mmhg, SpO2=96.0 %, Resp=17 B/min, Pain=0, Charles=10, Blake=2 15:46:04 MD responded 15:50:21 HR=60 bpm, SHLK=282/91 mmhg, SpO2=98.0 %, Resp=9 B/min, Pain=0, Charles=10, Blake=2 Time Out. Correct patient, correct procedure, correct physician, power injector not loaded with contrast with surgical 15:52:25 team present. Time Out Concurred by MD and individual staff in procedure. 15:52:37 Case Start 15:53:15 Verbal Stimulation=2 Physical Stimulation=2 Airway=2 Respiration=2 TOTAL=8. (0=absent, 1=li mited, 2=present) 15:53:26 20 mL 1% XYLOCAINE given in lab by Anders Ramirez in Right Radial via Subcutaneous. 15:53:44 0.5 mg VERSED given in lab by Jaylon Jara, RN in Right Antecubital via Peripheral IV. 15:54:20 25 mcg FENTANYL given in lab by Jaylon Jara RN via Peripheral IV. 15:55:22 HR=63 bpm, MWTI=872/91 mmhg, SpO2=97.0 %, Resp=19 B/min, Pain=0, Charles=10, Blake=2 16:00:27 HR=61 bpm, VZDF=839/82 mmhg, SpO2=94.0 %, Resp=12 B/min, Pain=0, Charles=10, Blake=2 16:01:26 Access site was Radial Artery. 16:02:08 A wire was inserted via Radial (right). A SHEATH, FR6 TRANSRADIAL SLENDER 10CM FR 6 was advanced into the Radial (right) using the Perc utaneous 16:02:21 technique. 5 mL (Bolus) RADIAL COCKTAIL given in lab by Anders Ramirez via Radial. Using [Solution Na me]. Reason: Ntg 16:02:29 200mcg Verapamil 2.5mg Heparin 3000U. A JR 4.0 INFINITI CATHETER FR 5 was advanced over a wire. OMNIPAQUE, 350 MG, 150ML 150ML was us ed for 16:03:30 injections. Recorded Pressure: LV, HR=74, Condition=Condition 1 16:04:01 (Left Ventricle) LV 128/5/10 Recorded Pressure: LV, Ao, HR=71, Condition=Condition 1 16:04:16 (Left Ventricle) LV 134/4/10, (Aorta) Ao 137/82/105 16:05:27 HR=71 bpm, SQPX=777/81 mmhg, SpO2=94.0 %, Resp=14 B/min, Pain=0, Charles=10, Blake=2 16:06:22 The RCA was injected and visualized at various angles. OMNIPAQUE, 350 MG, 150ML 150ML used . 16:08:08 Catheter was removed A JL 3.5 INFINITI CATHETER FR 5 was advanced over a wire. OMNIPAQUE, 350 MG, 150ML 150ML was us ed for 16:08:57 injections. 16:10:19 HR=63 bpm, ICJS=889/88 mmhg, SpO2=96 %, Resp=16 B/min, Pain=0, Charles=10, Blake=2 16:10:29 The LCA was injected and visualized at various angles. OMNIPAQUE, 350 MG, 150ML 150ML used . 16:11:40 Catheter was removed 16:11:52 OMNIPAQUE, 350 MG, 150ML 150ML and 30 LEONOR INDEFLATOR added. 16:13:54 A AR 1 GUIDE CATHETER FR 6 was advanced over a wire. OMNIPAQUE, 350 MG, 150ML 150ML was use d for injections. Recorded Pressure: Ao, HR=64, Condition=Condition 1 16:14:50 (Aorta) Ao 174/87/122 16:15:08 A WIRE, BALANCE MIDDLEWEIGHT 190CM 190CM was inserted via Radial (right). 16:15:16 4500 units HEPARIN given in lab by Jaylon Jara, RN via Peripheral IV. 16:15:23 HR=66 bpm, NDKR=581/91 mmhg, SpO2=95.0 %, Resp=13 B/min, Pain=0, Charles=10, Blake=2 After removing the current catheter a AL .75 GUIDE CATHETER FR 6 was advanced over a WIRE, EXCH DOMINGO 260CM 16:18:11 3MMJ 260CM. 16:20:26 HR=66 bpm, TASD=737/89 mmhg, SpO2=95 %, Resp=15 B/min, Pain=0, Charles=10, Blake=2 16:21:54 A WIRE, BALANCE MIDDLEWEIGHT 190CM 190CM was inserted via Radial (right). 16:23:57 Interventional wire has crossed the lesion A BALLOON, 2.5 X 20MM EUPHORA 20MM was inserted over WIRE, BALANCE MIDDLEWEIGHT 190CM 190CM via the 16:25:09 RCA Prox. 16:25:10 Activated Clotting Time Drawn 16:25:25 HR=65 bpm, DCID=409/88 mmhg, SpO2=94.0 %, Resp=13 B/min, Pain=0, Charles=10, Blake=2 A BALLOON, 2.5 X 20MM EUPHORA 20MM over a WIRE, BALANCE MIDDLEWEIGHT 190CM 190CM in the RCA Pro x was 16:27:24 inflated using a 30 LEONOR INDEFLATOR at 14 leonor for 20 sec. A BALLOON, 2.5 X 20MM EUPHORA 20MM over a WIRE, BALANCE MIDDLEWEIGHT 190CM 190CM in the RCA Pro x was 16:28:04 inflated using a 30 LEONOR INDEFLATOR at 14 leonor for 16 sec. 16:29:37 Balloon Removed. 16:31:11 HR=65 bpm, LPBA=545/103 mmhg, SpO2=96.0 %, Resp=19 B/min, Pain=0, Charles=10, Blake=2 16:32:36 0.5 mg VERSED given in lab by Jaylon Jara, RN via Peripheral IV. 16:35:31 HR=67 bpm, LNTD=514/89 mmhg, SpO2=97.0 %, Resp=14 B/min, Pain=0, Charles=10, Blake=2 16:36:14 ACT (Normal Range 90-180) = 353 A STENT, 3.0 34MM SULAIMAN 3.0 34MM was advanced through a AL .75 GUIDE CATHETER FR 6 over a WIRE, BALANCE 16:39:06 MIDDLEWEIGHT 190CM 190CM. A STENT, 3.0 34MM SULAIMAN 3.0 34MM was deployed using a 30 LEONOR INDEFLATOR at 14 atmospheres for 30 seconds in 16:40:04 the RCA Prox. 16:40:28 HR=65 bpm, QZEC=982/87 mmhg, SpO2=97.0 %, Resp=21 B/min, Pain=0, Charles=10, Blake=2 16:41:55 Delivery device removed A BALLOON, 3.0 X 20MM NC EUPHORA 20MM was inserted over WIRE, BALANCE MIDDLEWEIGHT 190CM 190CM via 16:43:04 the RCA Prox. A BALLOON, 3.0 X 20MM NC EUPHORA 20MM over a WIRE, BALANCE MIDDLEWEIGHT 190CM 190CM in the RCA Prox 16:44:18 was inflated using a 30 LEONOR INDEFLATOR at 18 leonor for 18 sec. A BALLOON, 3.0 X 20MM NC EUPHORA 20MM over a WIRE, BALANCE MIDDLEWEIGHT 190CM 190CM in the RCA Prox 16:45:06 was inflated using a 30 LEONOR INDEFLATOR at 20 leonor for 10 sec. 16:45:25 HR=64 bpm, RLOO=533/97 mmhg, SpO2=95.0 %, Resp=17 B/min, Pain=0, Charles=10, Blake=2 16:45:57 Balloon Removed. 16:46:30 The RCA was injected and visualized at various angles. OMNIPAQUE, 350 MG, 150ML 150ML used . 16:46:43 100 mcg NTG (IC) given in lab by Anders Ramirez via Intra-coronary. 16:48:38 Wire removed Assessment: Final Case, HR=74 BPM, Rhythm=reg, UMAR=825/97 mmhg, Chest Pain=0, Edema=None, [place] r=Normal, Skin = Warm Right Pulses: Valerio Ped=2, Femoral=2, Radial=2 16:49:09 Left Pulses: Femoral=2 Neurological: State=Alert, Ox3, KULKARNI Respiration: Resp=17 B/min, SpO2=99 % 16:50:22 Catheter was removed 16:50:28 HR=72 bpm, WSBL=625/103 mmhg, SpO2=97.0 %, Resp=14 B/min, Pain=0, Charles=10, Blake=2 Radial Compression Device Used. 12 mLs of air placed in BAND, RADIAL COMPRESSION TR SHORT 24 24 CM. Affected 16:52:12 hand 99 % O2 saturation. 16:52:32 Case End 16:52:34 Sterile dressing applied to site 16:52:35 No case complications noted. 16:52:35 Cine recording checked. 16:52:40 Bedside Report will be given. 16:52:49 A Left Heart Cath was performed. 16:52:59 Clinical correlaton risk stratification. 16:55:27 HR=61 bpm, VQOO=947/90 mmhg, SpO2=97.0 %, Resp=14 B/min, Pain=0, Charles=10, Blake=2 17:00:26 HR=61 bpm, JYYT=402/100 mmhg, SpO2=98 %, Pain=0, Charles=10, Blake=2 17:01:47 Vitals capture stopped. End Study - Contrast Media Used In Study Contrast Total Opened (mL) Total Used (mL) Total Wasted (mL) Omnipaque 140 140 0 End Study - Maximum Contrast Load Max Contrast Load (mL) 535.7 End Study - Radiation Exposure Fluoro Time (minutes) 9.3 End Study - Sheaths Sheaths Pulled By Sheath Hold Time (min) Tahira Melchor End Study - Patient Disposition Complications Transferred To Interventional Outcome No Regular Bed successful
[2018-03-07] MEDS ORDERED: MORPHINE SULFATE 2 MG/ML SYRINGE IV PUSH PRN (17:15)
[2018-03-07] MEDS ORDERED: ONDANSETRON HCL 4 MG/2 ML VIAL IVP PRN (17:15)
[2018-03-07] MEDS ORDERED: ACETAMINOPHEN 325 MG TAB PO PRN (17:15)
[2018-03-07] MEDS ORDERED: MISC INFORMATION XX ONE (17:15)
[2018-03-07] MEDS ORDERED: oxyCODONE/ACETAMINOPHEN 10 MG/325 MG TAB PO PRN (17:15)
[2018-03-07] MEDS ORDERED: oxyCODONE/ACETAMINOPHEN 5 MG/325 MG TAB PO PRN (17:15)
[2018-03-07] MEDS: GEMFIBROZIL 600 MG TAB PO SCH (18:15)
[2018-03-07] MEDS: METOPROLOL TARTRATE 25 MG TAB PO SCH (21:50)
[2018-03-08] VITALS (14 sets, daily range): BP systolic 121–135; BP diastolic 78–92; PULSE 52–68; RESP 16–18; TEMP 98–98.1; O2SAT 98
--- NOTE | 2018-03-08 00:11 | MB ---
cc: Anders Ramirez DO DATE: 03/07/2018 REASON FOR CONSULTATION: Unstable angina. HISTORY OF PRESENT ILLNESS: Alicia wSan is a pleasant 58-year-old female who previously saw my partner, Dr. Maldonado, in the office and presented to [facility] [place] due to chest pain. She states the chest pain was pressure-like in the center of her chest. She had some tingling and numbness down her left arm. She has also had progressive shortness of breath with the chest pain. She states that she had a similar presentation leading to cardiac catheterization in the past. She recently, around 6 months ago, had a stress test in the office which was negative for ischemia. I was called by Dr. Hatfield about the patient's chest pain. Symptoms are similar to when she needed a cardiac catheterization and revascularization in the past. PAST MEDICAL HISTORY: 1. Coronary artery disease. 2. Hypertension. 3. Hyperlipidemia. 4. Chronic tobacco use. 5. History of cervical cancer. 6. GERD. PAST SURGICAL HISTORY: 1. Tonsillectomy. 2. Appendectomy. 3. Cholecystectomy. 4. Oophorectomy with tubal . 5. Tubal ligation. 6. Coronary artery bypass grafting x2 with CEJA to LAD and SVG to obtuse marginal. 7. Cardiac catheterization (06/12/2013) with left main 20%, LAD patent, ramus patent, left circumflex 20%, OM2 50% in the proximal portion and 80% in the mid portion, RCA 40%. CEJA to LAD atretic and occluded, SVG totally occluded. ALLERGIES: NO KNOWN DRUG ALLERGIES. MEDICATIONS: 1. Plavix 75 mg daily. 2. Gemfibrozil 600 mg b.i.d. 3. Lipitor 20 mg every night. 4. Metoprolol tartrate 25 mg daily. 5. Norvasc 5 mg daily. 6. Lisinopril 20 mg daily. 7. Omeprazole 20 mg daily. FAMILY HISTORY: Denies premature coronary artery disease or sudden cardiac . SOCIAL HISTORY: The patient previously smoked but quit 6 months ago. Denies alcohol or drug abuse. REVIEW OF SYSTEMS: Fourteen systems are reviewed including osteopathic. Pertinent positives and negatives above, otherwise negative. PHYSICAL EXAMINATION: VITAL SIGNS: Temperature 97.9, heart rate 58, blood pressure 135/87, respirations 16, pulse oximetry 98% on 2 liters. GENERAL: The patient appears well, in no acute distress. Alert, awake and oriented x3. HEENT: Extraocular muscles intact. Mucous membranes moist. NECK: Supple. No JVD at 45 degrees. No carotid bruits heard bilaterally. Carotid upstroke is brisk in nature. HEART: Regular rate and rhythm. Positive first and second heart sounds with no noted murmurs, gallops or rubs. LUNGS: Clear to auscultation bilaterally. No wheezes, rales or rhonchi. ABDOMEN: Soft, nontender, nondistended. No organomegaly noted. EXTREMITIES: Show no clubbing, cyanosis or edema. Femoral and distal pulses intact bilaterally. NEUROLOGIC: No focal deficits. SKIN: Warm, dry and intact. OSTEOPATHIC: No kyphoscoliosis, lordosis or paraspinal tender points. LABORATORY DATA: Hemoglobin 12.0, hematocrit 34.8, platelets 287. Potassium 3.4, BUN 22, creatinine 0.73. Troponin 0.02. Electrocardiogram (03/07/2018 at 10:42) sinus rhythm, nonspecific ST and T-wave changes. ASSESSMENT AND PLAN: 1. Unstable angina on multiple antianginals, with typical chest pain for coronary insufficiency. 2. Coronary artery disease as above with a history of coronary artery bypass graft x2 (both grafts occluded) and history of percutaneous coronary intervention. 3. History of remote tobacco abuse. 4. Hypertension. RECOMMENDATIONS: 1. Ms. Swan presented with chest pain concerning for typical angina on multiple antianginals. She recently had stress testing that was negative, and I would not restress test her at this time. Because of her typical symptoms, we will plan on cardiac catheterization. 2. Risks, benefits, and alternatives were explained to her and she consented to such. 3. We will check a 2D echo to look at her overall left ventricular function, cardiac structure and possible valvopathies. 4. Further recommendations will be made after coronary visualization. Thank you for allowing me to see Alicia Swan. If there are any questions, please do not hesitate to call. DO MECCA Zabala/ALBERT , 11:34 PM , 12:10 AM
--- NOTE | 2018-03-08 00:31 | MA ---
cc: Anders Ramirez DO DATE: 03/07/2018 PROCEDURE: Left heart catheterization, coronary angiogram, Putnam drug-eluting stent (3 x 34) to right coronary artery, moderate sedation 60 minutes. PREPROCEDURE DIAGNOSIS: Unstable angina on multiple medications. POSTPROCEDURE DIAGNOSIS: Unstable angina, status post Putnam drug-eluting stent (3 x 34) to the right coronary artery. MEDICATIONS: Versed 1 mg, fentanyl 25 mcg, nitroglycerin 200 mcg, verapamil 2.5 mg, heparin 7500 units. CONTRAST USED: 140 mL FLUOROSCOPY: 9.3 minutes. MODERATE SEDATION: 60 minutes. FRAILTY SCORE: 3. ESTIMATED BLOOD LOSS: 10 mL PROCEDURAL SUMMARY: Alicia Swan is a pleasant 58-year-old female who previously saw my partner, Dr. Maldonado in the office and presented to [facility] Emergency Room due to chest pain. As she recently had stress testing which was negative, but had typical angina on multiple antianginals she was recommended cardiac catheterization. Risks, benefits and alternatives were explained to her and she consented to such. She was brought to the lab and prepped in the usual sterile fashion. The right radial artery was accessed using a modified Seldinger technique and placement of a 5/6 [place] Slender sheath. This was easily aspirated and flushed. A JR4 was advanced over a J-wire to the ascending aorta and across the aortic valve for measurement of left ventricular pressure. This is pulled back across the aortic valve showing no significant gradient of aortic stenosis. JR4 was used for selective angiography of the right coronary artery system. This was exchanged out for a JL3.5, which was used for selective angiography of the left coronary artery system. Please see notes below for intervention. FINDINGS: LEFT MAIN: Normal size vessel with 20% stenosis. It trifurcates into an LAD, ramus and circumflex. LEFT ANTERIOR DESCENDING: Normal size vessel with diffuse 30% disease throughout. It gives off 2 small diagonals. RAMUS: Small to moderate sized vessel with 30% to 40% disease in the proximal to mid portion. LEFT CIRCUMFLEX: Small to moderate sized vessel with 80% lesion in the third obtuse marginal, but overall small vessel at 1.5 mm. RIGHT CORONARY ARTERY: Normal size vessel with tandem 80% lesions in the proximal and mid portion. Distally it supplies a PDA and 2 PLDs which have diffuse 40% disease. LEFT VENTRICULAR END DIASTOLIC PRESSURE: 10. LEFT INTERNAL MAMMARY ARTERY TO LEFT ANTERIOR DESCENDING: Known to be occluded from previous angiogram. SAPHENOUS VEIN GRAFT: Believed to be the obtuse marginal, known to be occluded from previous cardiac catheterization. INTERVENTION: Because of Ms. Swan's unstable angina on multiple antianginals and significant change in her coronary artery disease of the right coronary artery it was felt that this was the culprit lesion. Her other coronary anatomy is similar to previous review of films of her previous cardiac catheterization. An AR1 guide was attempted to engage the RCA, but was unable to and so an AL1 was engaged into the RCA. Heparin was given as an anticoagulant. A BMW wire was advanced into the distal RCA. Both tandem lesions were predilated with a compliant balloon (2.5 x 20). An Thomas drug-eluting stent (3 x 34) was placed over the tandem lesions and inflated. This was postdilated with a noncompliant balloon (3 x 20). Final angiogram shows a well opposed stent with no perforations or dissections. The wire and guide were removed. A radial band was placed over the arteriotomy site for hemostasis. As patient had been loaded with aspirin earlier this morning and been on Plavix chronically No medications were given. 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 IMPRESSIONS: 1. Unstable angina on multiple antianginals. 2. Coronary artery disease, status post Putnam drug-eluting stent (3 x 34) to the right coronary artery. 3. History of coronary artery bypass graft x 2 (both grafts known to be occluded). RECOMMENDATIONS: 1. Ms. Swan underwent PCI as above and will be recommended aspirin and Plavix therapy. 2. She will continue on her beta vin, Norvasc, statin and YOLANDA inhibitor. 3. We will check a 2-D echo to look at her overall left ventricular function, cardiac structure and possible valvulopathies. 4. If stable tomorrow most likely discharge home for followup with Dr. Maldonado. Thank you for allowing me to see Alicia Swan. If there are any questions, please do not hesitate to call. Anders Ramirez, VGP/rt , 11:47 PM , 12:29 AM
[2018-03-08 05:23] LABS: BASOPHIL % 0.9 % (0.0-2.0); EOSINOPHIL # 0.3 TH/MM3 (0-0.4); EOSINOPHIL % 5.8 % (0.0-4.0); HEMOGLOBIN 12.3 GM/DL (11.6-15.3); LYMPHOCYTE # 1.6 TH/MM3 (1.0-4.8); MEAN CELL VOLUME 86.2 FL (80.0-100.0); MEAN CORPUSCULAR HEMOGLOBIN 29.6 PG (27.0-34.0); MEAN CORPUSCULAR HGB CONC 34.3 % (32.0-36.0); MEAN PLATELET VOLUME 8.2 FL (7.0-11.0); MONO % 9.2 % (0.0-8.0); MONOCYTE # 0.5 TH/MM3 (0-0.9); NEUT % 55.1 % (16.0-70.0); PLATELET COUNT 255 TH/MM3 (150-450); RED BLOOD COUNT 4.17 MIL/MM3 (4.00-5.30); RED CELL DISTRIBUTION WIDTH 13.3 % (11.6-17.2); WHITE BLOOD COUNT 5.4 TH/MM3 (4.0-11.0)
[2018-03-08 05:31] LABS: BICARBONATE 25.3 MEQ/L (21.0-32.0); CALCIUM 9.1 MG/DL (8.5-10.1); CREATININE 0.87 MG/DL (0.50-1.00)
[2018-03-08] MEDS: GEMFIBROZIL 600 MG TAB PO SCH ×2 (07:57→17:04)
[2018-03-08] MEDS: METOPROLOL TARTRATE 25 MG TAB PO SCH (07:58)
[2018-03-08] MEDS ORDERED: CLOPIDOGREL 75 MG TAB PO SCH (09:00)
[2018-03-08] MEDS ORDERED: PANTOPRAZOLE SOD 20 MG DELAYED RELEASE TAB PO SCH (09:00)
[2018-03-08] MEDS ORDERED: LISINOPRIL 20 MG TAB PO SCH (09:00)
[2018-03-08] MEDS ORDERED: amLODIPine BESYLATE 5 MG TAB PO SCH (09:00)
[2018-03-08] MEDS ORDERED: ASPIRIN 81 MG CHEW TAB CHEW SCH (09:00)
--- NOTE | 2018-03-08 14:35 | ECHRPT ---
Indication: CHEST PAIN CONCLUSIONS Normal left ventricular size. Wall thickness is normal. The left ventricular systolic function is normal with an estimated ejection fraction in the range of 60-65%. There is mild to moderate tricuspid valve regurgitation. The estimated pulmonary arterial pressure is 39 mmHg. Trivial pulmonary valve regurgitation. The inferior vena cava is dilated. BP: / HR: Rhythm: MEASUREMENTS (Male / Female) Normal Values Technical Quality: 2D ECHO LV Diastolic Diameter PLAX 4.6 cm 4.2 - 5.9 / 3.9 - 5.3 cm LV Systolic Diameter PLAX 3.4 cm IVS Diastolic Thickness 0.8 cm 0.6 - 1.0 / 0.6 - 0.9 cm LVPW Diastolic Thickness 0.6 cm 0.6 - 1.0 / 0.6 - 0.9 cm LV Relative Wall Thickness 0.3 RV Internal Dim ED PLAX 1.5 cm LA Systolic Diameter LX 3.3 cm 3.0 - 4.0 / 2.7 - 3.8 cm DOPPLER Mitral E Point Velocity 91.8 cm/s Mitral A Point Velocity 76.5 cm/s Mitral E to A Ratio 1.2 TR Peak Velocity 267.0 cm/s TR Peak Gradient 28.5 mmHg Right Atrial Pressure 10.0 mmHg Pulmonary Artery Systolic Pressu 38.5 mmHg Right Ventricular Systolic Press 38.5 mmHg FINDINGS LEFT VENTRICLE Normal left ventricular size. Wall thickness is normal. The left ventricular systolic function is normal with an estimated ejection fraction in the range of 60-65%. RIGHT VENTRICLE Normal right ventricular size and systolic function. LEFT ATRIUM The left atrial size is normal. RIGHT ATRIUM The right atrial size is normal. ATRIAL SEPTUM Normal atrial septal thickness without atrial level shunting by limited color doppler interrogation. AORTA The aortic root and proximal ascending aorta are normal in size on limited imaging. MITRAL VALVE Structurally normal mitral valve. No mitral valve stenosis or regurgitation. AORTIC VALVE Trileaflet aortic valve. No aortic valve stenosis or regurgitation. TRICUSPID VALVE There is mild tricuspid valve regurgitation. The estimated pulmonary arterial pressure is 39 mmHg. PULMONARY VALVE Trivial pulmonary valve regurgitation. VESSELS The inferior vena cava is dilated. PERICARDIUM No pericardial effusion. Dax Palma MD, FACC, FSCAI (Electronically Signed) Final Date:08 March 2018 14:33
[2018-03-08] MEDS ORDERED: ATOR40TA16 PO (17:15)
[2018-03-08] MEDS ORDERED: METO25TA3 PO (17:15)
[2018-03-08] MEDS ORDERED: ASPI81 CHEW (17:15)
--- NOTE | 2018-03-08 17:16 | HHI.DCPOC ---
Discharge Care Plan Diagnosis: (1) History of coronary artery bypass surgery (2) History of coronary artery stent placement (3) Tobacco abuse (4) Hyperlipidemia (5) Chest pain (6) Coronary artery disease (7) Hypertension Goals to Promote Your Health * To prevent worsening of your condition and complications * To maintain your health at the optimal level Directions to Meet Your Goals Take your medications as prescribed Follow your dietary instruction Follow activity as directed Keep your appointments as scheduled Take your immunizations and boosters as scheduled If your symptoms worsen call your PCP, if no PCP go to Urgent Care Center or Emergency Room Smoking is Dangerous to Your Health. Avoid second hand smoke Call the 24-hour hour crisis hotline for domestic abuse at Brown Gleason MD Mar 08, 2018 17:16
--- NOTE | 2018-03-08 17:17 | HHI.DS ---
Discharge Summary Admission Date Mar 07, 2018 at 12:31 Admitting Diagnosis chest pain Brief History - From Admission 58-year-old white female being admitted for chest pain. Patient was in her usual state of health until about 20 minutes prior to presents to the emergency department when she began expressing sudden onset of chest pain that was at least 6/10 intensity. There was no alleviating or exacerbating factors found. Chest pain had resolved prior to her coming to the emergency department. They report having some nausea lightheadedness and tingling in her left arm as well. Denies losing consciousness. But now with the chest pain gone she did have some shortness of breath with the chest pain episode her shortness of breath has resolved and has no pleuritic aspect of any chest pain. Says that this was similar to her prior presentations in the past when she ultimately did get catheterized. Denies any fevers or chills. Patient reports being compliant with her atorvastatin and her Plavix. Past medical history significant for CABG and stenting, as well as COPD and blood pressure medications Social history significant for lifelong history of smoking until about 6 months ago. Family history is unremarkable per patient. In the emergency department she had an EKG done which I independently reviewed and saw no significant ST segment changes concerning for ischemia or infarction. Was given aspirin in the emergency department. CBC/BMP: 03/08/18 0447 03/08/18 0447 Significant Findings Laboratory Tests Test 03/07/18 10:54 03/08/18 04:47 Hematocrit 34.8 % (35.0-46.0) Blood Urea Nitrogen 22 MG/DL (7-18) Total Protein 8.4 GM/DL (6.4-8.2) Potassium Level 3.4 MEQ/L (3.5-5.1) Estimat Glomerular Filtration Rate 82 ML/MIN (>89) 67 ML/MIN (>89) Troponin I LESS THAN 0.02 NG/ML Monocytes (%) (Auto) 9.2 % (0.0-8.0) Eosinophils (%) (Auto) 5.8 % (0.0-4.0) Pt Condition on Discharge: Stable Discharge Disposition: Discharge Home Discharge Instructions DIET: Follow Instructions for: Heart Healthy Diet Activities you can perform: Regular-No Restrictions Brown Gleason MD Mar 08, 2018 17:17
[2018-03-08] MEDS ORDERED: ATORVASTATIN 40 MG TAB PO SCH (21:00)
--- NOTE | 2018-03-08 22:43 | PD.CARD.PN ---
Subjective Subjective Remarks Patient was seen earlier this afternoon, late entry note Doing great, no chest pain/SOB Objective Medications Current Medications Aspirin (Aspirin Chew) 162 mg ONCE ONCE PO Last administered on 03/07/18 11: 24; Start 03/07/18 at 11:15; Stop 03/07/18 at 11:16; Status DC Sodium Chloride (NS Flush) 2 ml UNSCH PRN IVF FLUSH AFTER USING IV ACCESS; Start 03/07/18 at 11:15; Stop 03/08/18 at 17:48; Status DC Gemfibrozil (Lopid) 600 mg BIDAC PO Last administered on 03/08/18 17:04; Start 03/07/18 at 16:00; Stop 03/08/18 at 17:48; Status DC Lisinopril (Prinivil) 20 mg DAILY PO Last administered on 03/08/18at 07:57; Start 03/08/18 at 09:00; Stop 03/08/18 at 17:48; Status DC Pantoprazole Sodium (Protonix) 20 mg DAILY PO Last administered on 03/08/18 07 :57; Start 03/08/18 at 09:00; Stop 03/08/18 at 17:48; Status DC Metoprolol Tartrate (Lopressor) 12.5 mg Q12HR PO Last administered on at 07:58; Start 03/07/18 at 21:00; Stop 03/08/18 at 17:48; Status DC Midazolam HCl (Versed Inj) 2 mg STK-MED ONCE .ROUTE Last administered on 15:53; Start 03/07/18 at 15:29; Stop 03/07/18 at 15:30; Status DC Fentanyl Citrate (fentaNYL INJ) 100 mcg STK-MED ONCE .ROUTE Last administered on 03/07/18at 15:54; Start 03/07/18 at 15:29; Stop 03/07/18 at 15:30; Status DC Heparin Sodium (Porcine) (Heparin Inj) 10,000 units STK-MED ONCE .ROUTE Last administered on 03/07/18 16:02; Start 03/07/18 at 15:30; Stop 03/07/18 at 15:31 ; Status DC Nitroglycerin 5 ml @ As Directed STK-MED ONCE .ROUTE Last administered on 4/24/ 18at 16:02; Start 03/07/18 at 15:30; Stop 03/07/18 at 15:31; Status DC Verapamil HCl (Isoptin Inj) 5 mg STK-MED ONCE .ROUTE Last administered on at 16:02; Start 03/07/18 at 15:30; Stop 03/07/18 at 15:31; Status DC Heparin Sodium/ Sodium Chloride 1,000 ml @ As Directed STK-MED ONCE IV FLUSH Last administered on 03/07/18at 15:50; Start 03/07/18 at 17:01; Stop 03/07/18 at 17:02; Status DC Acetaminophen (Tylenol) 325 mg Q4H PRN PO PAIN SCALE 1 TO 2; Start 03/07/18 at 17:15; Stop 03/08/18 at 17:48; Status DC Oxycodone/ Acetaminophen (Percocet 5-325 Mg) 1 tab Q4H PRN PO PAIN SCALE 3 TO 5; Start 03/07/18 at 17:15; Stop 03/08/18 at 17:48; Status DC Oxycodone/ Acetaminophen (Percocet 10-325 Mg) 1 tab Q4H PRN PO PAIN SCALE 6 TO 10; Start 03/07/18 at 17:15; Stop 03/08/18 at 17:48; Status DC Morphine Sulfate (Morphine Inj) 2 mg Q30M PRN IV PUSH BREAKTHROUGH PAIN; Start 03/07/18 at 17:15; Stop 03/08/18 at 17:48; Status DC Ondansetron HCl (Zofran Inj) 4 mg Q6H PRN IVP NAUSEA; Start 03/07/18 at 17:15; Stop 03/08/18 at 17:48; Status DC Miscellaneous Information 1 ONCE ONCE XX ; Start 03/07/18 at 17:15; Stop at 17:38; Status DC Amlodipine Besylate (Norvasc) 5 mg DAILY PO Last administered on 03/08/18at 07: 57; Start 03/08/18 at 09:00; Stop 03/08/18 at 17:48; Status DC Clopidogrel Bisulfate (Plavix) 75 mg DAILY PO Last administered on 03/08/18at 07 :57; Start 03/08/18 at 09:00; Stop 03/08/18 at 17:48; Status DC Aspirin (Aspirin Chew) 81 mg DAILY CHEW Last administered on 03/08/18at 07:57; Start 03/08/18 at 09:00; Stop 03/08/18 at 17:48; Status DC Atorvastatin Calcium (Lipitor) 40 mg HS PO ; Start 03/08/18 at 21:00; Stop 03/08 at 21:00; Status DC Vital Signs / I&O Vital Signs Date Time Temp Pulse Resp B/P (MAP) Pulse Ox O2 Delivery O2 Flow Rate FiO2 03/08/18 15:33 98.0 58 16 121/78 (92) 98 03/08/18 15:00 61 03/08/18 11:10 98.0 68 16 123/86 (98) 98 03/08/18 11:00 64 03/08/18 10:00 65 03/08/18 09:00 68 03/08/18 08:00 65 03/08/18 07:30 98.1 61 18 135/92 (106) 98 03/08/18 07:00 65 03/08/18 04:00 54 03/08/18 04:00 52 03/08/18 03:00 62 03/08/18 02:00 56 03/08/18 01:00 64 03/08/18 00:00 64 03/08/18 00:00 65 03/07/18 23:00 58 I/O 03/07/18 03/07/18 03/07/18 03/08/18 03/08/18 03/08/18 07:00 15:00 23:00 07:00 15:00 23:00 Intake Total 970 ml 240 ml Output Total 650 ml 2000 ml Balance 320 ml -1760 ml Intake Oral 720 ml 240 ml IV Total 250 ml Output Urine Total 650 ml 2000 ml # Bowel Movements 0 Physical Exam GENERAL: NAD, AAOx3 SKIN: Warm and dry. HEAD: Atraumatic. Normocephalic. EYES: Pupils equal and round. No scleral icterus. No injection or drainage. ENT: No nasal bleeding or discharge. Mucous membranes pink and moist. NECK: Trachea midline. No JVD. CARDIOVASCULAR: Regular rate and rhythm. RESPIRATORY: No accessory muscle use. Clear to auscultation. Breath sounds equal bilaterally. GASTROINTESTINAL: Abdomen soft, non-tender, nondistended. Hepatic and splenic margins not palpable. MUSCULOSKELETAL: Extremities without clubbing, cyanosis, or edema. No obvious deformities. Right radial no hematoma, neurovascularly intact distally NEUROLOGICAL: Awake and alert. No obvious cranial nerve deficits. Motor grossly within normal limits. Five out of 5 muscle strength in the arms and legs. Normal speech. PSYCHIATRIC: Appropriate mood and affect; insight and judgment normal. Laboratory Laboratory Tests Test 03/08/18 04:47 White Blood Count 5.4 TH/MM3 Red Blood Count 4.17 MIL/MM3 Hemoglobin 12.3 GM/DL Hematocrit 36.0 % Mean Corpuscular Volume 86.2 FL Mean Corpuscular Hemoglobin 29.6 PG Mean Corpuscular Hemoglobin Concent 34.3 % Red Cell Distribution Width 13.3 % Platelet Count 255 TH/MM3 Mean Platelet Volume 8.2 FL Neutrophils (%) (Auto) 55.1 % Lymphocytes (%) (Auto) 29.0 % Monocytes (%) (Auto) 9.2 % Eosinophils (%) (Auto) 5.8 % Basophils (%) (Auto) 0.9 % Neutrophils # (Auto) 3.0 TH/MM3 Lymphocytes # (Auto) 1.6 TH/MM3 Monocytes # (Auto) 0.5 TH/MM3 Eosinophils # (Auto) 0.3 TH/MM3 Basophils # (Auto) 0.0 TH/MM3 CBC Comment DIFF FINAL Differential Comment Blood Urea Nitrogen 16 MG/DL Creatinine 0.87 MG/DL Random Glucose 92 MG/DL Calcium Level 9.1 MG/DL Sodium Level 142 MEQ/L Potassium Level 4.0 MEQ/L Chloride Level 107 MEQ/L Carbon Dioxide Level 25.3 MEQ/L Anion Gap 10 MEQ/L Estimat Glomerular Filtration Rate 67 ML/MIN Assessment and Plan Problem List: (1) Unstable angina ICD Codes: I20.0 - Unstable angina (2) Chest pain ICD Codes: R07.9 - Chest pain Status: Acute (3) Coronary artery disease ICD Codes: I25.10 - Coronary artery disease Status: Acute (4) Hypertension ICD Codes: I10 - Hypertension Status: Acute (5) Hyperlipidemia ICD Codes: E78.5 - Hyperlipidemia Status: Acute (6) History of coronary artery bypass surgery ICD Codes: Z95.1 - History of coronary artery bypass surgery Status: Acute (7) History of coronary artery stent placement ICD Codes: Z95.5 - History of coronary artery stent placement Status: Acute Assessment and Plan 1) USA on multiple anti-anginals s/p MAXIMILIANO to RCA ASA/Plavix 2) EF 60-65% 3) CAD Hx of CABGx2 (both grafts occluded) No change in OM disease, small vessel Continue medical management 4) Cardiovascularly stable for discharge Discharged on ASA/Plavix/Lipitor/BB/YOLANDA Follow up with Dr. Maldonado Overall would increase Lipitor dose and stop Gemfibrozil, can be done outpatient Problem Qualifiers (1) Coronary artery disease: Qualified Codes: I25.10 - Atherosclerotic heart disease of [place] coronary artery without angina pectoris Anders Ramirez DO Mar 08, 2018 22:43
== END 2018-03-08 17:48 | disposition home or self-care (01) | DRG 247 ==
LOC: PHED 10:34 → PHEDA 12:31 → HCIS 14:41
PROVIDERS: ADMIT Hospitalist; ATTEND Hospitalist
PROC: 4A023N7 Measurement of Cardiac Sampling and Pressure, Left Heart, Percutaneous Approach (ICD-10-PCS; 2018-03-07)
PROC: B2111ZZ Fluoroscopy of Multiple Coronary Arteries using Low Osmolar Contrast (ICD-10-PCS; 2018-03-07)
PROC: B2151ZZ Fluoroscopy of Left Heart using Low Osmolar Contrast (ICD-10-PCS; 2018-03-07)
PROC: 027034Z Dilation of Coronary Artery, One Artery with Drug-eluting Intraluminal Device, Percutaneous Approach (ICD-10-PCS; principal; 2018-03-07 13:45)
DX: I25.110 Atherosclerotic heart disease of native coronary artery with unstable angina pectoris (principal); I10 Essential (primary) hypertension; J44.9 Chronic obstructive pulmonary disease, unspecified; E78.5 Hyperlipidemia, unspecified; K21.9 Gastro-esophageal reflux disease without esophagitis; Z87.891 Personal history of nicotine dependence; Z95.1 Presence of aortocoronary bypass graft; I25.2 Old myocardial infarction
CPT/HCPCS: 71046; 80048; 80053; 84484; 85025; 92928; 93005; 93306; 93458; 99152; 99153; C1725; C1769; C1874; C1887; C1893; J1644; J2250; J3010